=== PATIENT | female | born 1940 | race American Indian/Alaskan Native ===

== ENCOUNTER 2019-05-09 12:35 | Emergency (ER) | payer MEDICARE ==
[~2019-05-09] VITALS: Ht 152.4 cm; Wt 81.7 kg
[2019-05-09 13:17] LABS: BASOPHILS ABSOLUTE AUTO 0.05 K/mm3 (0.00-0.23); BASOPHILS PERCENT AUTO 1 % (0-2); EOSINOPHILS ABSOLUTE AUTO 0.18 K/mm3 (0.00-0.68); EOSINOPHILS PERCENT AUTO 2 % (0-6); Hematocrit 43.8 % (33.0-51.0); Hemoglobin 14.5 g/dL (11.5-16.0); IMMATURE GRAN ABSOLUTE AUTO 0.02 K/mm3 (0.00-0.10); IMMATURE GRAN PERCENT AUTO 0 % (0-1); LYMPHOCYTES ABSOLUTE AUTO 4.83 K/mm3 (0.84-5.20); LYMPHOCYTES PERCENT AUTO 50 % (21-46); MONOCYTES ABSOLUTE AUTO 0.77 K/mm3 (0.16-1.47); MONOCYTES PERCENT AUTO 8 % (4-13); Mean Corpuscular HGB Conc 33.1 g/dL (31.5-36.5); Mean Corpuscular Volume 88 fL (80-100); Mean Platelet Volume 11.9 fL (9.1-12.4); NEUTROPHILS ABSOLUTE AUTO 3.73 K/mm3 (1.96-9.15); NEUTROPHILS PERCENT AUTO 39 % (41-73); Platelet Count 272 K/mm3 (150-400); RDW Coefficient Variation 13.5 % (11.7-14.2); RDW Standard Deviation 43.6 fL (35.1-46.3); White Blood Cell Count 9.58 K/mm3 (4.00-11.30)
[2019-05-09 13:33] LABS: Alanine Aminotransfer (ALT/SGP 68 U/L (12-78); Albumin, Blood 3.9 g/dL (3.4-5.0); Alk Phos 61 U/L (50-136); Anion Gap 7 mmol/L (6-16); Aspartate Aminotrans (AST/SGOT 94 U/L (12-37); Bilirubin, Total 0.5 mg/dL (0.1-1.0); Blood Urea Nitrogen 19 mg/dL (8-24); Bun/Creatinine Ratio 25.7 (12.0-20.0); CO2, Blood 28 mmol/L (21-32); Calcium, Blood 8.8 mg/dL (8.5-10.1); Chloride, Blood 104 mmol/L (98-108); Creatinine, Blood 0.74 mg/dL (0.40-1.00); Glomerular Filtration Rate >60 (60-); Glucose, Blood 90 mg/dL (70-99); Potassium, Blood 3.8 mmol/L (3.5-5.5); Sodium, Blood 139 mmol/L (136-145); Total Protein, Blood 7.9 g/dL (6.4-8.2)
[2019-05-09] MEDS ORDERED: IBUP600 PO (14:29)
[2019-05-09] MEDS ORDERED: Spironolactone1 EACH PO (14:42)
[2019-05-09] MEDS ORDERED: Bystolic20 MG PO (14:43)
[2019-05-09] MEDS ORDERED: COLCHICINE0.6 MG PO (14:43)
[2019-05-09] MEDS ORDERED: TRAZ50 PO (14:43)
== END 2019-05-09 14:51 | disposition home or self-care (01) ==
LOC: ER 12:35
PROVIDERS: Physician Assistant
DX: R51 Headache (principal); I10 Essential (primary) hypertension; Z79.899 Other long term (current) drug therapy
CPT/HCPCS: 36415; 70450; 80053; 85025; 96374; 99284-25; J1885

== ENCOUNTER 2023-06-07 16:35 | Observation (INO) | payer MEDICARE ==
[~2023-06-07] VITALS: Ht 152.4 cm; Wt 68.0 kg
[~2023-06-07 16:35] MED LIST changes: -ALLOPURINOL100 M1 PO; -GLIP5 PO; -METFORMIN HCL500 M3 PO; -PHOSPHO-TRIN K500 MG PO
[2023-06-07] MEDS ORDERED: GLIP5 PO (21:22)
[2023-06-07] MEDS ORDERED: METFORMIN HCL500 M3 PO (21:22)
[2023-06-07] MEDS ORDERED: ALLOPURINOL100 M1 PO (21:22)
[2023-06-08 03:17] LABS: Magnesium, Blood 2.1 mg/dL (1.6-2.4); Potassium, Blood 3.4 mmol/L (3.5-5.5)
[2023-06-08 04:37] LABS: BASOPHILS ABSOLUTE AUTO 0.07 K/mm3 (0.00-0.23); BASOPHILS PERCENT AUTO 1 % (0-2); EOSINOPHILS PERCENT AUTO 1 % (0-6); Hematocrit 36.6 % (33.0-51.0); Hemoglobin 12.8 g/dL (11.5-16.0); IMMATURE GRAN ABSOLUTE AUTO 0.01 K/mm3 (0.00-0.10); IMMATURE GRAN PERCENT AUTO 0 % (0-1); LYMPHOCYTES ABSOLUTE AUTO 3.75 K/mm3 (0.84-5.20); LYMPHOCYTES PERCENT AUTO 38 % (21-46); MONOCYTES ABSOLUTE AUTO 0.96 K/mm3 (0.16-1.47); MONOCYTES PERCENT AUTO 10 % (4-13); Mean Corpuscular HGB 28.6 pg (26.0-34.0); Mean Corpuscular Volume 82 fL (80-100); Mean Platelet Volume 11.7 fL (9.1-12.4); NEUTROPHILS ABSOLUTE AUTO 5.05 K/mm3 (1.96-9.15); NEUTROPHILS PERCENT AUTO 51 % (41-73); Platelet Count 310 K/mm3 (150-400); RDW Coefficient Variation 13.3 % (11.7-14.2); RDW Standard Deviation 39.3 fL (35.1-46.3); Red Blood Cell Count 4.47 M/mm3 (3.80-5.20); White Blood Cell Count 9.94 K/mm3 (4.00-11.30)
[2023-06-08 05:45] LABS: Albumin, Blood 3.1 g/dL (3.4-5.0); Albumin/Globulin Ratio 0.8 (0.8-1.8); Bilirubin, Total 0.8 mg/dL (0.1-1.0); Bun/Creatinine Ratio 24.8 (12.0-20.0); Calcium, Blood 9.1 mg/dL (8.5-10.1); Creatinine, Blood 0.73 mg/dL (0.40-1.00); Potassium, Blood 3.6 mmol/L (3.5-5.5); Total Protein, Blood 7.1 g/dL (6.4-8.2)
[2023-06-08] MEDS ORDERED: PHOSPHO-TRIN K500 MG PO (11:44)
[2023-06-08 12:31] VITALS: BP 125/75
== END 2023-06-08 15:00 | disposition home or self-care (01) ==
LOC: ER 16:35 → ERHOLD 16:36
PROVIDERS: Family Medicine; Student in an Organized Health Care Education/Training Program; ADMIT Internal Medicine
DX: E87.6 Hypokalemia (principal); N17.9 Acute kidney failure, unspecified; M10.9 Gout, unspecified; I44.7 Left bundle-branch block, unspecified; K21.9 Gastro-esophageal reflux disease without esophagitis; E11.9 Type 2 diabetes mellitus without complications; Z79.84 Long term (current) use of oral hypoglycemic drugs; Z79.899 Other long term (current) drug therapy; R53.81 Other malaise; R53.83 Other fatigue
CPT/HCPCS: 71046; 80048; 80053; 83735; 84100; 84132; 85025; 93005; 93010; 96361; 96365; 96366; 96368; 99284-25; A9270; J1644; J3475; J3480; J7030

== ENCOUNTER → 2023-06-07 | Outpatient (CLI) | payer MEDICARE ==
[~2023-06-07] MED LIST: ALLOPURINOL100 M1 PO; Bystolic20 MG PO; COLCHICINE0.6 MG PO; GLIP5 PO; IBUP600 PO; METFORMIN HCL500 M3 PO; PHOSPHO-TRIN K500 MG PO; SPIRONOLACTONE1 EACH PO; TRAZ50 PO
[2023-06-07 15:46] LABS: BASOPHILS ABSOLUTE AUTO 0.07 K/mm3 (0.00-0.23); BASOPHILS PERCENT AUTO 1 % (0-2); EOSINOPHILS PERCENT AUTO 1 % (0-6); Hematocrit 42.3 % (33.0-51.0); Hemoglobin 14.7 g/dL (11.5-16.0); IMMATURE GRAN ABSOLUTE AUTO 0.02 K/mm3 (0.00-0.10); IMMATURE GRAN PERCENT AUTO 0 % (0-1); LYMPHOCYTES ABSOLUTE AUTO 4.23 K/mm3 (0.84-5.20); LYMPHOCYTES PERCENT AUTO 42 % (21-46); MONOCYTES ABSOLUTE AUTO 0.96 K/mm3 (0.16-1.47); MONOCYTES PERCENT AUTO 10 % (4-13); Mean Corpuscular HGB 28.8 pg (26.0-34.0); Mean Corpuscular HGB Conc 34.8 g/dL (31.5-36.5); Mean Corpuscular Volume 83 fL (80-100); Mean Platelet Volume 11.5 fL (9.1-12.4); NEUTROPHILS ABSOLUTE AUTO 4.61 K/mm3 (1.96-9.15); NEUTROPHILS PERCENT AUTO 46 % (41-73); Platelet Count 374 K/mm3 (150-400); RDW Coefficient Variation 13.4 % (11.7-14.2); RDW Standard Deviation 39.7 fL (35.1-46.3); Red Blood Cell Count 5.11 M/mm3 (3.80-5.20); White Blood Cell Count 9.99 K/mm3 (4.00-11.30)
[2023-06-07 15:50] LABS: Calcium, Blood 9.1 mg/dL (8.5-10.1); Creatinine, Blood 1.15 mg/dL (0.40-1.00); Potassium, Blood 2.6 mmol/L (3.5-5.5)
== END | disposition home or self-care (01) ==
LOC: LAB 15:39 → LAB SHORT 15:39
PROVIDERS: Physician Assistant Surgical
DX: R53.81 Other malaise (principal); R53.83 Other fatigue
CPT/HCPCS: 80048; 85025

== ENCOUNTER 2024-08-01 17:20 | Inpatient (IN) | payer OTHER, MEDICARE ==
[~2024-08-01] VITALS: Ht 152.4 cm; Wt 70.5 kg
[~2024-08-01 17:20] MED LIST changes: +ALLOPURINOL100 M1 PO; +GLIP5 PO; +METFORMIN HCL500 M3 PO; +PHOSPHO-TRIN K500 MG PO
[2024-08-01] MEDS ORDERED: Ondansetron HCl 2 MG / ML 2ML Vial ONE (17:27)
[2024-08-01] MEDS ORDERED: Ondansetron HCl 2 MG / ML 2ML Vial IV ONE ×2 (17:35→20:15)
[2024-08-01] MEDS ORDERED: SPIRONOLACTONE25 MG PO (17:50)
[2024-08-01] MEDS ORDERED: OZEMPIC0.25 MG/02 SQ (17:50)
[2024-08-01] MEDS ORDERED: OMEP20ER PO (17:51)
[2024-08-01 18:18] LABS: BASOPHILS ABSOLUTE AUTO 0.04 K/mm3 (0.00-0.23); BASOPHILS PERCENT AUTO 0 % (0-2); EOSINOPHILS ABSOLUTE AUTO 0.27 K/mm3 (0.00-0.68); EOSINOPHILS PERCENT AUTO 3 % (0-6); Hematocrit 34.7 % (33.0-51.0); Hemoglobin 11.8 g/dL (11.5-16.0); IMMATURE GRAN ABSOLUTE AUTO 0.07 K/mm3 (0.00-0.10); IMMATURE GRAN PERCENT AUTO 1 % (0-1); LYMPHOCYTES ABSOLUTE AUTO 4.85 K/mm3 (0.84-5.20); LYMPHOCYTES PERCENT AUTO 47 % (21-46); MONOCYTES ABSOLUTE AUTO 0.85 K/mm3 (0.16-1.47); MONOCYTES PERCENT AUTO 8 % (4-13); Mean Corpuscular HGB 28.8 pg (26.0-34.0); Mean Corpuscular Volume 85 fL (80-100); Mean Platelet Volume 11.3 fL (9.1-12.4); NEUTROPHILS PERCENT AUTO 41 % (41-73); Platelet Count 256 K/mm3 (150-400); RDW Coefficient Variation 13.2 % (11.7-14.2); RDW Standard Deviation 40.7 fL (35.1-46.3); White Blood Cell Count 10.28 K/mm3 (4.00-11.30)
[2024-08-01 18:27] LABS: Albumin, Blood 3.3 g/dL (3.4-5.0); Albumin/Globulin Ratio 0.8 (0.8-1.8); Bilirubin, Total 0.3 mg/dL (0.1-1.0); Bun/Creatinine Ratio 19.7 (12.0-20.0); Calcium, Blood 8.9 mg/dL (8.5-10.1); Creatinine, Blood 0.61 mg/dL (0.40-1.00); Globulin, Blood 3.9 g/dL (2.2-4.0); Potassium, Blood 3.2 mmol/L (3.5-5.5); Total Protein, Blood 7.2 g/dL (6.4-8.2)
[2024-08-01] MEDS ORDERED: HYDROmorphone HCl/Pf 1MG SYR IV ONE (18:55)
[2024-08-01 19:55] LABS: International Normalized Ratio 1.02; Prothrombin Time Results 10.9 Sec (9.7-11.5)
[2024-08-01] MEDS ORDERED: Methocarbamol 500 MG Tab PO ONE (20:15)
[2024-08-01] MEDS ORDERED: Lactated Ringer's 1,000 ML IV SCH (21:37)
[2024-08-01] MEDS ORDERED: Potassium Chloride 10 Meq Tablet SA PO ONE (21:44)
[2024-08-01] MEDS ORDERED: OxyCODONE 5 mg/Acetamin 325 mg TABLET PO PRN (21:45)
[2024-08-01] MEDS ORDERED: Acetaminophen 325 MG TABLET PO PRN (21:45)
[2024-08-01] MEDS ORDERED: FLU VACC TS2024-25(6MOS UP)/PF 45 MCG/0.5 ML SYRINGE IM SCH (21:45)
[2024-08-01] MEDS ORDERED: FentaNYL Citrate 50 MCG/ML 2 ML Injection IV PRN (21:50)
[2024-08-01] MEDS ORDERED: Ondansetron HCl 2 MG / ML 2ML Vial IV PRN (21:50)
[2024-08-01 21:59] LABS: Magnesium, Blood 1.6 mg/dL (1.6-2.4)
[2024-08-01] MEDS ORDERED: LORA.5 PO (22:21)
[2024-08-01 23:13] VITALS: BP 187/79
--- NOTE | 2024-08-02 00:39 | NUR ---
NEW ADMIT PT IS A/OX4. FULL CODE. NEW ADMIT FOR NEW LEFT HIP FX. PT HAD FALL AT HOME IN THE BATHROOM AND BROUGHT IN BY AMBULANCE. PT ARRIVED TO ROOM AT 2250. TRANSFERED WITH BED SHEET AND 4 PERSON ASSIST. PT IS VERY PAINFUL TO LEFT HIP AND NOT TOLERATING MOVEMENT. GAVE PT 25MCG OF FENTANYL AND ORAL PERCOCET. STARTED IV FLUIDS. PT GIVEN ORAL POTASSIUM ORDERED. PT HAD SMALL SNACK AND WATER--THEN NPO AT MIDNIGHT. NOTED MILD WEAKNESS TO LEFT ARM. PT STATES SHE HAS HAD A NEW ONSET OF N&T IN LEFT ARM/LEG ACCOMPANIED BY WEAKNESS. PT STATES SHE HAS NOT BEEN EVALUATED--SPEECH IS CLEAR. PT STATES SYMPTOMS IMPROVE WITH MOVEMENT AND MASSAGE. 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 HX OF MENERIE'S DISEASE--SUDDEN BOUTS OF DIZZINESS. PT LIVES IN A SINGLE STORY HOME WITH GRANDSON. PT USES A CANE FOR AMBULATION WHEN OUTSIDE THE HOME. IN THE HOME BUT PT USES FIXTURES TO ASSIST WITH AMBULATION. PT DENIES SAFETY CONCERNS AT HOME. PT STILL DRIVES BUT GRANDSON WILL PROVIDE TRANSPORTATION IF SHE IS UNABLE TO DRIVE HERSELF. GRANDSON'S NAME IS , ; REQUEST TO SPEAK WITH SURGEON PRIOR TO PT SURGERY. ADVISED WILL PASS ON REQUEST. PT DENIES SMOKING OR IGNITION SOURCES. EDUCATED PT ON ROOM AND CALL LIGHT. INSTRUCTED ON REASON FOR NPO STATUS AND PLAN/NEED TO MANAGE PAIN. CALL LIGHT ACCESSIBLE.
[2024-08-02 04:55] VITALS: BP 168/56
[2024-08-02 05:10] LABS: BASOPHILS ABSOLUTE AUTO 0.03 K/mm3 (0.00-0.23); BASOPHILS PERCENT AUTO 0 % (0-2); EOSINOPHILS ABSOLUTE AUTO 0.02 K/mm3 (0.00-0.68); EOSINOPHILS PERCENT AUTO 0 % (0-6); Hemoglobin 11.3 g/dL (11.5-16.0); IMMATURE GRAN ABSOLUTE AUTO 0.07 K/mm3 (0.00-0.10); IMMATURE GRAN PERCENT AUTO 1 % (0-1); LYMPHOCYTES ABSOLUTE AUTO 2.97 K/mm3 (0.84-5.20); LYMPHOCYTES PERCENT AUTO 22 % (21-46); MONOCYTES ABSOLUTE AUTO 0.99 K/mm3 (0.16-1.47); MONOCYTES PERCENT AUTO 7 % (4-13); Mean Corpuscular HGB 28.8 pg (26.0-34.0); Mean Corpuscular HGB Conc 34.2 g/dL (31.5-36.5); Mean Corpuscular Volume 84 fL (80-100); Mean Platelet Volume 11.3 fL (9.1-12.4); NEUTROPHILS ABSOLUTE AUTO 9.53 K/mm3 (1.96-9.15); NEUTROPHILS PERCENT AUTO 70 % (41-73); Platelet Count 225 K/mm3 (150-400); RDW Coefficient Variation 13.2 % (11.7-14.2); RDW Standard Deviation 40.2 fL (35.1-46.3); Red Blood Cell Count 3.93 M/mm3 (3.80-5.20); White Blood Cell Count 13.61 K/mm3 (4.00-11.30)
[2024-08-02 05:57] LABS: Albumin, Blood 3.2 g/dL (3.4-5.0); Albumin/Globulin Ratio 0.9 (0.8-1.8); Bilirubin, Total 0.6 mg/dL (0.1-1.0); Bun/Creatinine Ratio 19.6 (12.0-20.0); Calcium, Blood 8.7 mg/dL (8.5-10.1); Creatinine, Blood 0.61 mg/dL (0.40-1.00); Globulin, Blood 3.6 g/dL (2.2-4.0); Potassium, Blood 3.6 mmol/L (3.5-5.5); Total Protein, Blood 6.8 g/dL (6.4-8.2)
[2024-08-02 07:21] VITALS: BP 172/67
[2024-08-02] MEDS ORDERED: Insulin Human Lispro 100 Units/ML 3ML Syringe SC SCH (07:30)
[2024-08-02] MEDS ORDERED: BENADRYL25 MG PO (13:17)
--- NOTE | 2024-08-02 15:20 | NUR ---
CALLED MD REQUESTED TO RESTART PATIENT'S HOME MEDICATIONS AND ALSO REQUESTED TO START PATIENT ON BOWEL MEDS DUE TO PATIENT WITH FREQUENT NARCOTIC USE.
[2024-08-02 15:59] VITALS: BP 180/66
[2024-08-02] MEDS ORDERED: LORazepam 0.5 MG Tab PO PRN (16:35)
[2024-08-02] MEDS ORDERED: HydrALAZINE HCl 20 MG / ML 1ML Vial IV PRN (16:40)
[2024-08-02] MEDS ORDERED: Cyclobenzaprine HCl 10 MG Tab PO PRN (16:45)
[2024-08-02] MEDS ORDERED: SEMAGLUTIDE 0.25 MG/0.368 ML SC SCH (16:45)
[2024-08-02] MEDS ORDERED: Carvedilol 6.25 MG Tab PO SCH (17:00)
[2024-08-02] MEDS ORDERED: Polyethylene Glycol 3350 17 gm PO PRN (17:35)
[2024-08-02] MEDS ORDERED: Docusate Sodium/Senna 1 Tab PO PRN (17:35)
[2024-08-02 18:33] VITALS: BP 172/52
--- NOTE | 2024-08-02 18:43 | NUR ---
SHIFT SUMMARY PATIENT A/OX4, ABLE TO MAKE NEEDS KNOWN. [address] TRACTION IN PL[address] TO LEFT LOWER EXTREMITY PER ORDERS. PATIENT CONTINUES TO COMPLAIN OF PAIN TO LEFT HIP R/T FRACTURE, PRN FLEXERIL, FENTANYL AND PERCOCET ADMINISTERED PER OCT. PLAN TO HAVE SURGERY TOMORROW, NPO AT MIDNIGHT. IV FLUIDS RUNNING PER OCT. REPEAT CT ALAS AND XRAY BEING TAKEN CURRENTLY. FAMILY AT BEDSIDE THROUGHOUT MOST OF SHIFT. PATIENT WITH ELEVATED BLOOD PRESSURE THROUGHOUT SHIFT MD NOTIFIED AND PRN HYDRALAZINE IN PLACE NOW AND ADMINISTERED, NOT EFFECTIVE. SBP REMAINS ELEVATED. PATIENT'S HOME MEDICATIONS ORDERED. PATIENT ALSO COMPLAINING OF NAUSEA THIS EVENING AFTER DINNNER, PRN ZOFRANA ADMINISTERED PER OCT. NO OTHER CONCERNS AT THIS TIME.
[2024-08-02 20:10] VITALS: BP 153/60
[2024-08-02] MEDS ORDERED: DiphenhydrAMINE HCL 25 MG Cap PO SCH (21:00)
[2024-08-03 03:52] VITALS: BP 152/63
[2024-08-03] MEDS ORDERED: Omeprazole 20 MG CapCR PO SCH (06:00)
[2024-08-03 06:10] LABS: Bun/Creatinine Ratio 16.4 (12.0-20.0); Calcium, Blood 8.8 mg/dL (8.5-10.1); Creatinine, Blood 0.61 mg/dL (0.40-1.00); Potassium, Blood 3.8 mmol/L (3.5-5.5)
--- NOTE | 2024-08-03 06:10 | NUR ---
WHISKEY PROOF READER SUMMARY PT A/OX4. ABLE TO MAKE NEEDS KNOWN. PT RETURNED FROM IMAGING JUST AFTER START OF SHIFT. XFFERED TO BED WITH XFER SHEET AND 4 STAFF. INCREASED PAIN WITH MOVEMENT/ACTIVITY. BUCKS TRACTION READMIN PER ORDER UPON PT RETURN; 5LBS. MEDS TO MANAGE PAIN PER MAR. PT HAS NOT HAD A BOWEL MOVEMENT SINCE ADMIT; LAST BM WAS DAY OF FALL AT HOME. PT EXPRESSING FEAR OF MOVEMENT AND NEED TO USE BEDPAN. EDUCATED PT ON RISKS OF CONSTIPATION/SBO RELATED TO MEDICATIONS AND IMMOBILITY. PRN STOOL SOFTNERS GIVEN WITH 2100 MEDS. PT DECLINED MIRALAX. HS CBG 190; COVERAGE NOT ORDERED PER SLIDING SCALE. DISCUSSED WITH PT; PLAN TO RESUME [facility], HOME MED; HAS BEEN ORDERED AND ON PT OCT. PT HAS BEEN NPO SINCE MIDNIGHT FOR SURGERY PLANNED TODAY. TX PAIN WITH PRN PERCOCET, FENTANYL AND FLEXERIL. PT LETHARGIC AND NON SENSICAL AT TIMES; CALL TO HOPITALIST; NEW ORDER FOR CONT BIOX. PT MAINTAINING SAT GREATER THAN 90% ON RA. REGULAR INTERAVAL ROUNDING COMPLETE TO ASSESS AND MEET NEEDS. WCTM UNTIL REPORT GIVEN TO ONCOMING NURSE.
[2024-08-03 06:22] LABS: BASOPHILS ABSOLUTE AUTO 0.05 K/mm3 (0.00-0.23); BASOPHILS PERCENT AUTO 0 % (0-2); EOSINOPHILS ABSOLUTE AUTO 0.28 K/mm3 (0.00-0.68); EOSINOPHILS PERCENT AUTO 2 % (0-6); Hemoglobin 11.6 g/dL (11.5-16.0); IMMATURE GRAN ABSOLUTE AUTO 0.05 K/mm3 (0.00-0.10); IMMATURE GRAN PERCENT AUTO 0 % (0-1); LYMPHOCYTES ABSOLUTE AUTO 3.61 K/mm3 (0.84-5.20); LYMPHOCYTES PERCENT AUTO 29 % (21-46); MONOCYTES PERCENT AUTO 8 % (4-13); Mean Corpuscular HGB 28.9 pg (26.0-34.0); Mean Corpuscular HGB Conc 34.1 g/dL (31.5-36.5); Mean Corpuscular Volume 85 fL (80-100); NEUTROPHILS ABSOLUTE AUTO 7.42 K/mm3 (1.96-9.15); NEUTROPHILS PERCENT AUTO 60 % (41-73); RDW Coefficient Variation 13.5 % (11.7-14.2); RDW Standard Deviation 41.7 fL (35.1-46.3); Red Blood Cell Count 4.01 M/mm3 (3.80-5.20); White Blood Cell Count 12.41 K/mm3 (4.00-11.30)
[2024-08-03 06:29] LABS: Mean Platelet Volume 11.7 fL (9.1-12.4)
[2024-08-03 06:58] LABS: Platelet Count 200 K/mm3 (150-400)
[2024-08-03 07:15] VITALS: BP 138/53
[2024-08-03] MEDS ORDERED: Spironolactone 12.5 MG TAB PO SCH (09:00)
[2024-08-03] MEDS ORDERED: Allopurinol 100 MG Tab PO SCH (09:00)
[2024-08-03] MEDS ORDERED: SEMAGLUTIDE 0.25 MG/0.368 ML SC SCH ×2 (09:00→21:00)
[2024-08-03 15:50] VITALS: BP 178/65
--- NOTE | 2024-08-03 15:50 | NUR ---
ARRIVAL TO UNIT PT ARRIVED TO UNIT ON BED FROM MEDICAL FLOOR. PT ON 2L NASAL CANULA, REPORTED TO DESAT WITH PAIN MEDICATIONS. CURRENTLY 94%. DENIES SOB. L LEG PAINFUL, 5LB BUCKS TRACTION IN PLACE. LEG EXTERNALLY ROTATED. PT AA0X4, USING CALL LIGHT APPROPRIATLY. PUREWICK IN PLACE. PT TOLERATING MOUTH SWABS. ELENA NEEDS AT THIS TIME. EAGER FOR SURGERY TOMORROW.
--- NOTE | 2024-08-03 15:56 | NUR ---
TRANSFER NOTE PATIENT TRANSFERRED TO ROOM 216 THIS AFTERNOON. REPORT GIVEN TO MARY. FAMILY AWARE OF TRANSFER. MD DISCONTINUED INSULIN ORDER AND ACHS CBG MONITORING THIS SHIFT. PATIENT'S HOME OZEMPIC SENT TO ROOM 216 WITH PATIENT WELL ALL BELONGINGS. PATIENT DOES NOT TOLERATE Q2 HOUR REPOSITIONING WELL D/T L HIP PAIN. PRN FENTANYL, PERCOCET, AND FLEXERIL ADMINISTERED THROUGHOUT SHIFT PER OCT. PATIENT LEFT LOWER EXTREMITY REMAINS IN 5LBS BOWDEN'S TRACTION. HEATING PAD PROVIDED TO PATIENT FOR PAIN. PATIENT PLACED ON 2 LPM SUPPLEMENTAL OXYGEN VIA NASAL CANNULA THIS AFTERNOON AFTER ADMINISTRATION OF FENTANYL. SPO2 DROPPED TO 86%. NO OTHER CONCERNS AT THIS TIME.
[2024-08-03 17:00] VITALS: BP 167/68
--- NOTE | 2024-08-03 18:15 | NUR ---
no acute changes since transfer to unit pt remains painful but improved with repositioning. ivf infusing, tolerating diet. plan is for npo at midnight and surgery tomorrow.
[2024-08-03 19:41] VITALS: BP 149/67
[2024-08-04] VITALS (28 sets, daily range): BP systolic 103–162; BP diastolic 43–75
[2024-08-04 04:27] LABS: BASOPHILS ABSOLUTE AUTO 0.04 K/mm3 (0.00-0.23); BASOPHILS PERCENT AUTO 0 % (0-2); EOSINOPHILS ABSOLUTE AUTO 0.31 K/mm3 (0.00-0.68); EOSINOPHILS PERCENT AUTO 3 % (0-6); Hematocrit 33.2 % (33.0-51.0); Hemoglobin 11.3 g/dL (11.5-16.0); IMMATURE GRAN ABSOLUTE AUTO 0.02 K/mm3 (0.00-0.10); IMMATURE GRAN PERCENT AUTO 0 % (0-1); LYMPHOCYTES ABSOLUTE AUTO 2.29 K/mm3 (0.84-5.20); LYMPHOCYTES PERCENT AUTO 22 % (21-46); MONOCYTES ABSOLUTE AUTO 1.04 K/mm3 (0.16-1.47); MONOCYTES PERCENT AUTO 10 % (4-13); Mean Corpuscular HGB 29.3 pg (26.0-34.0); Mean Corpuscular Volume 86 fL (80-100); Mean Platelet Volume 10.8 fL (9.1-12.4); NEUTROPHILS ABSOLUTE AUTO 6.59 K/mm3 (1.96-9.15); NEUTROPHILS PERCENT AUTO 64 % (41-73); Platelet Count 186 K/mm3 (150-400); RDW Coefficient Variation 13.5 % (11.7-14.2); RDW Standard Deviation 42.4 fL (35.1-46.3); Red Blood Cell Count 3.86 M/mm3 (3.80-5.20); White Blood Cell Count 10.29 K/mm3 (4.00-11.30)
[2024-08-04 04:46] LABS: Bun/Creatinine Ratio 15.9 (12.0-20.0); Calcium, Blood 8.6 mg/dL (8.5-10.1); Creatinine, Blood 0.69 mg/dL (0.40-1.00); Potassium, Blood 3.6 mmol/L (3.5-5.5)
--- NOTE | 2024-08-04 06:43 | NUR ---
SHIFT SUMMARY NO ACUTE CHANGES T/O SHIFT. PT APPEARS TO HAVE RESTED WELL T/O SHIFT. BUCKS TRACTION IN PLACE. NPO FOR SURGERY TODAY, IVF INFUSING PER ORDERS. CHG BATH COMPLETE BY MOLDER VACUUM. SPO2 ABOVE 95% ON 2L NC. PAIN MANAGED PER EMAR. PT CURRENTLY RESTING IN BED WITH CALL LIGHT IN REACH. WILL REPORT TO ONCOMING DAY RN.
[2024-08-04] MEDS ORDERED: Tranexamic Acid 1,000 MG in NS 100 ML IV SCH (07:20)
[2024-08-04] MEDS ORDERED: Ropivacaine 0.5% HCl/Pf 123.125 MG,EPINEPHrine HCL 0.25 MG,Ketorolac Tromethamine 15 MG... INFIL SCH (07:20)
[2024-08-04] MEDS ORDERED: CeFAZolin Sodium 2,000 MG in NS 100 ML IV SCH ×2 (07:20→21:00)
[2024-08-04] MEDS ORDERED: Vancomycin HCL 1,000 MG in NS 250 ML IV SCH (07:25)
[2024-08-04] MEDS ORDERED: CeFAZolin Sodium 2,000 MG VIAL ONE (11:34)
--- NOTE | 2024-08-04 12:14 | NUR ---
History, Chart, Medications and Allergies reviewed before start of procedure. Pre-Op teaching done. Pt verbalizes understanding. Patient confirms NPO status and agrees with scheduled surgery. PT BELONGINGS LEFT IN SURG FLOOR RM.
--- NOTE | 2024-08-04 12:20 | NUR ---
PT TAKEN TO DAY SURGERY AT 1159.
[2024-08-04] MEDS ORDERED: FentaNYL Citrate 50 MCG/ML 2 ML Injection ONE ×2 (12:50→13:51)
[2024-08-04] MEDS ORDERED: Albumin (Human) 12.5gm/250ml 500 ML IV ONE (12:50)
[2024-08-04] MEDS ORDERED: Etomidate 2MG / ML 10ML Vial ONE (12:50)
[2024-08-04] MEDS ORDERED: Bisacodyl 10 MG Supp PR PRN (13:05)
[2024-08-04] MEDS ORDERED: DiphenhydrAMINE HCL 25 MG Cap PO PRN (13:05)
[2024-08-04] MEDS ORDERED: FLU VACC TS2024-25(6MOS UP)/PF 45 MCG/0.5 ML SYRINGE IM ONE (13:05)
[2024-08-04] MEDS ORDERED: Promethazine HCl 25 MG Tab PO PRN (13:05)
[2024-08-04] MEDS ORDERED: Prochlorperazine Edisylate 10 mg Vial IV PRN (13:05)
[2024-08-04] MEDS ORDERED: HYDROmorphone HCl/Pf 1MG SYR IV PRN (13:10)
[2024-08-04] MEDS ORDERED: Ondansetron HCl 2 MG / ML 2ML Vial IV PRN (13:10)
[2024-08-04] MEDS ORDERED: Metoclopramide HCl 5MG / ML 2ML Vial IV PRN (13:10)
[2024-08-04] MEDS ORDERED: OxyCODONE HCL 5 MG TAB PO PRN (13:10)
[2024-08-04] MEDS ORDERED: Magnesium Hydroxide Conc 10 ML UDC PO PRN (13:15)
[2024-08-04] MEDS ORDERED: NS 1,000 ML IV SCH (13:15)
--- NOTE | 2024-08-04 13:45 | NUR ---
08/04/24 Muna Hallman PRIOR TO ARRIVING IN OR, PATIENT RECEIVED VANCO 1GM IV IN THE PREOP SETTING.
[2024-08-04] MEDS ORDERED: Phenylephrine HCl 100 MCG/ML-NS 10MLSYR (1MG/10ML) ONE (14:09)
[2024-08-04] MEDS ORDERED: Lidocaine HCl 2% 20 ML MDV ONE (14:10)
[2024-08-04] MEDS ORDERED: Dexamethasone Sod Phos 10 MG/ML 1ML VIAL ONE (14:10)
[2024-08-04] MEDS ORDERED: Ondansetron HCl 2 MG / ML 2ML Vial ONE (14:10)
[2024-08-04] MEDS ORDERED: Phenylephrine HCl 10mg/ml 1 ml Vial ONE (14:16)
[2024-08-04] MEDS ORDERED: Sugammadex Sodium 200 MG/2ML SDV (100 MG/ML) ONE (14:47)
[2024-08-04] MEDS ORDERED: Naloxone HCl 0.4MG / ML 1ML Vial ONE (15:46)
[2024-08-04] MEDS ORDERED: Acetaminophen 500 MG Tab PO SCH (16:00)
[2024-08-04] MEDS ORDERED: Ketorolac Tromethamine 15mg Vial IV SCH (18:00)
--- NOTE | 2024-08-04 18:00 | NUR ---
PT ARRIVED TO THE ROOM FROM PACU AT APPROXIMATELY 1715. UPON ARRIVAL PT WAS DROWSY, SHE WOKE WHEN SPOKEN TO/WITH PHYSICAL STIMULI. PT ORIENTED TO SELF. PT ABLE TO MOVE ALL EXTREMITIES WEAKLY. L HIP DRESSING C/D/I. NOTED MOIST BREATH SOUNDS UPON ARRIVAL, JOSE FRANCISCO RT NOTIFIED AND SUCTIONED PT, SOME BLOODY DRAINAGE WAS OBTAINED, BREATH SOUNDS IMPROVED. DR. BYERS NOTIFIED OF FINDINGS WITH SUCTIONGING, CHEST XRAY ORDERED. PT ALSO REMAINED SOMNOLENT, VBG ORDERED. DR. BYERS STATED HE WOULD ROUND ON PT IN APPROXIMATELY 15-20 MINUTES.
[2024-08-04 18:49] LABS: Base Excess Venous -0.4 mmol/L; Bicarbonate Venous 24.2 mmol/L (24.0-30.0); PCO2 Venous 36.8 mmHg (38-42); pH Blood Venous 7.42 (7.34-7.37)
--- NOTE | 2024-08-04 19:30 | NUR ---
SHIFT SUMMARY PT IS POD#0 FROM L TATI HIP. PT HAS BEEN SOMNOLENT SINCE ARRIVAL FROM RECOVERY ROOM. DR. BYERS NOTIFIED OF LAB RESULTS, CHEST XRAY RESULTS AND HE ROUNDED ON PT. PT WAKES TO VERBAL STIMULI BUT IS STILL DROWSY. PT NOW ON 5L O2 VIA NC. TELE ORDERED. BEDSIDE REPORT GIVEN TO KD WATSON. CONTINUOUS OX IN PLACE. MESSAGE LEFT WITH PT'S GRANDSON RAE TO CALL REGARDING UPDATE ABOUT HIS GRANDMOTHER.
--- NOTE | 2024-08-04 19:47 | NUR ---
DR. BYERS ROUNDING PROVIDER ROUNDING AT THIS TIME DUE TO RN REQUEST. NEW ORDERS OBTAINED TO HOLD TORADOL, IVF, AND PO MEDS UNTIL REASSESSED IN THE MORNING. BREATHING TREATMENTS AND BIPAP PRN ALSO OBTAINED. PLAN FOR H/H IN MORNING. WILL IMPLEMENT ORDERED. CHARGE NOTIFIED.
[2024-08-04] MEDS ORDERED: Ketorolac Tromethamine 15mg Vial IV PRN (19:51)
[2024-08-04] MEDS ORDERED: Docusate Sodium 100 MG Cap PO SCH (21:00)
--- NOTE | 2024-08-04 23:24 | NUR ---
PROVIDER UPDATE PER FINISHED STOCK INSPECTOR, PT EXPERIENCING ST ELEVATION. HOSPITALIST NOTIFIED. PT ASYMPTOMATIC, VSS. EKG COMPLETE- NSR WITH LEFT BUNDLE BRANCH BLOCK AT 85 BPM. NO NEW ORDERS AT THIS TIME.
[2024-08-05] MEDS ORDERED: Vancomycin HCL 1,000 MG in NS 250 ML IV SCH
[2024-08-05 04:18] VITALS: BP 116/47
[2024-08-05 04:42] LABS: BASOPHILS ABSOLUTE AUTO 0.01 K/mm3 (0.00-0.23); BASOPHILS PERCENT AUTO 0 % (0-2); EOSINOPHILS PERCENT AUTO 0 % (0-6); Hematocrit 27.3 % (33.0-51.0); Hemoglobin 9.2 g/dL (11.5-16.0); IMMATURE GRAN ABSOLUTE AUTO 0.03 K/mm3 (0.00-0.10); IMMATURE GRAN PERCENT AUTO 0 % (0-1); LYMPHOCYTES PERCENT AUTO 5 % (21-46); MONOCYTES ABSOLUTE AUTO 0.36 K/mm3 (0.16-1.47); MONOCYTES PERCENT AUTO 5 % (4-13); Mean Corpuscular HGB Conc 33.7 g/dL (31.5-36.5); Mean Corpuscular Volume 86 fL (80-100); Mean Platelet Volume 11.4 fL (9.1-12.4); NEUTROPHILS ABSOLUTE AUTO 7.15 K/mm3 (1.96-9.15); NEUTROPHILS PERCENT AUTO 90 % (41-73); Platelet Count 165 K/mm3 (150-400); RDW Coefficient Variation 13.6 % (11.7-14.2); RDW Standard Deviation 42.5 fL (35.1-46.3); Red Blood Cell Count 3.17 M/mm3 (3.80-5.20); White Blood Cell Count 7.95 K/mm3 (4.00-11.30)
[2024-08-05 05:05] LABS: Bun/Creatinine Ratio 24.1 (12.0-20.0); Calcium, Blood 8.3 mg/dL (8.5-10.1); Creatinine, Blood 0.7 mg/dL (0.40-1.00); Magnesium, Blood 1.7 mg/dL (1.6-2.4); Potassium, Blood 3.5 mmol/L (3.5-5.5)
[2024-08-05 07:05] VITALS: BP 145/59
--- NOTE | 2024-08-05 07:34 | NUR ---
SHIFT SUMMARY POD 1 LEFT TATI HIP. DRESSING TO LEFT HIP CDI. ICE THERAPY APPLIED TOLERATED. SPO2 ABOVE 95% ON 2L NC, REFUSED BIPAP/CPAP. POOR PO INTAKE, TOLERATING SMALL AMOUNTS OF CL. DENIES N/V. PAIN MANAGED PER EMAR AND REPOSITIONING. BAKER TO GRAVITY DRAIN. IVF HELD PER ORDERS. Q2 TURNS. ABX INFUSED. PT DROWSY THIS MORNING WITH FAMILY AT BEDSIDE. HAS CALL LIGHT IN REACH. ABLE TO MAKE NEEDS KNOWN. REPORT GIVEN TO DAY RN.
[2024-08-05] MEDS ORDERED: Enoxaparin 40 MG/0.4 ML SYR SC SCH (09:00)
[2024-08-05] MEDS ORDERED: Trimethoprim/Sulfamethoxazole DS Tab PO SCH (09:00)
[2024-08-05 14:12] VITALS: BP 140/42
--- NOTE | 2024-08-05 15:21 | NUR ---
SHIFT SUMMARY HAS DONE WELL THIS SHIFT. WORKED w/ PT & OT. PAIN CONTROLLED w/ TYLENOL. SAMUEL IYER'd THIS AFTERNOON SINCE MOBILIZING WELL. PLAN TO GO TO SNF TOMORROW.
[2024-08-05 19:21] VITALS: BP 144/48
--- NOTE | 2024-08-05 19:30 | NUR ---
SUMMARY PT A&OX4, VSS/2LNC/BIOX ON, PAIN MANAGED, ROWAN PO, AMB 1PP MOD W/FWW & GB, UP TO CHAIR, AMB TO BRP, VOIDING, GRANDSONS BEDSIDE. REPORT TO NOEL WATSON.
--- NOTE | 2024-08-06 04:14 | NUR ---
SHIFT SUMMARY POD1 L HIP FX. AQUACEL C/D/I. POSTERIOR HIP PRECAUTIONS. 1 ASSIST GB, FWW TO BSC/CHAIR. PAIN MANAGED WELL. VSS. CALL LIGHT IN REACH.
[2024-08-06 05:01] VITALS: BP 143/57
[2024-08-06 05:20] LABS: BASOPHILS ABSOLUTE AUTO 0.02 K/mm3 (0.00-0.23); BASOPHILS PERCENT AUTO 0 % (0-2); EOSINOPHILS ABSOLUTE AUTO 0.34 K/mm3 (0.00-0.68); EOSINOPHILS PERCENT AUTO 4 % (0-6); Hematocrit 25.6 % (33.0-51.0); Hemoglobin 8.6 g/dL (11.5-16.0); IMMATURE GRAN ABSOLUTE AUTO 0.02 K/mm3 (0.00-0.10); IMMATURE GRAN PERCENT AUTO 0 % (0-1); LYMPHOCYTES ABSOLUTE AUTO 2.61 K/mm3 (0.84-5.20); LYMPHOCYTES PERCENT AUTO 30 % (21-46); MONOCYTES ABSOLUTE AUTO 0.78 K/mm3 (0.16-1.47); MONOCYTES PERCENT AUTO 9 % (4-13); Mean Corpuscular HGB 29.4 pg (26.0-34.0); Mean Corpuscular HGB Conc 33.6 g/dL (31.5-36.5); Mean Corpuscular Volume 87 fL (80-100); Mean Platelet Volume 11.2 fL (9.1-12.4); NEUTROPHILS ABSOLUTE AUTO 4.87 K/mm3 (1.96-9.15); NEUTROPHILS PERCENT AUTO 57 % (41-73); Platelet Count 172 K/mm3 (150-400); RDW Standard Deviation 44.8 fL (35.1-46.3); Red Blood Cell Count 2.93 M/mm3 (3.80-5.20); White Blood Cell Count 8.64 K/mm3 (4.00-11.30)
[2024-08-06 06:03] LABS: Bun/Creatinine Ratio 32.2 (12.0-20.0); Calcium, Blood 8.3 mg/dL (8.5-10.1); Creatinine, Blood 0.75 mg/dL (0.40-1.00); Potassium, Blood 3.2 mmol/L (3.5-5.5)
[2024-08-06 07:41] VITALS: BP 142/54
[2024-08-06 11:44] LABS: SARS-Cov-2 (COVID-19) PCR, MMC NEGATIVE (NEGATIVE)
--- NOTE | 2024-08-06 13:05 | NUR ---
DISCHARGE PT DISCHARGED TO SNF VIA WHEEL CHAIR TRANSPORT. EDUCATION PROVIDED. ALL BELONGINGS SENT WITH PT.
== END 2024-08-06 13:00 | DRG 522 ==
LOC: ER 17:20 → MEDS 21:41 → SURS 21:41 → MEDS 22:59 → SURS 08-03 15:49
PROVIDERS: Family Medicine; Internal Medicine; Orthopaedic Surgery; Student in an Organized Health Care Education/Training Program; ADMIT Student in an Organized Health Care Education/Training Program
PROC: 0SRS0J9 Replacement of Left Hip Joint, Femoral Surface with Synthetic Substitute, Cemented, Open Approach (ICD-10-PCS; principal; 2024-08-04 12:30)
DX: S72.012A Unspecified intracapsular fracture of left femur, initial encounter for closed fracture (principal); E78.00 Pure hypercholesterolemia, unspecified; Z88.8 Allergy status to other drugs, medicaments and biological substances; E87.6 Hypokalemia; H81.09 Meniere's disease, unspecified ear; N18.30 Chronic kidney disease, stage 3 unspecified; I12.9 Hypertensive chronic kidney disease with stage 1 through stage 4 chronic kidney disease, or unspecified chronic kidney disease; E11.22 Type 2 diabetes mellitus with diabetic chronic kidney disease; M10.9 Gout, unspecified; W01.0XXA Fall on same level from slipping, tripping and stumbling without subsequent striking against object, initial encounter; Z79.899 Other long term (current) drug therapy; Y92.002 Bathroom of unspecified non-institutional (private) residence as the place of occurrence of the external cause
CPT/HCPCS: 36415; 71045; 72170; 72192; 73502; 73552; 80048; 80053; 82803; 82947; 83735; 85025; 85610; 85730; 93005; 93010; 94660; 94762; 96374; 96375; 96376; 97110; 97162; 97165; 97530; 97535; 99285-25; A9270; C1713; C1776; J0171; J0360; J0690; J0735; J1100; J1171; J1650; J1885; J2310; J2371; J2405; J2795; J3010; J3370; J7050; J7120; P9045; U0002

== ENCOUNTER 2025-06-13 15:08 | Observation (INO) | payer MEDICARE | END 2025-06-14 17:05 | disposition home health service (06) | LOC: ER 15:08 → MEDS 15:09 | PROVIDERS: ADMIT Internal Medicine | DX: G45.9 Transient cerebral ischemic attack, unspecified (principal); I66.01 Occlusion and stenosis of right middle cerebral artery; I25.10 Atherosclerotic heart disease of native coronary artery without angina pectoris; K21.9 Gastro-esophageal reflux disease without esophagitis; E78.00 Pure hypercholesterolemia, unspecified; E11.9 Type 2 diabetes mellitus without complications; Z79.899 Other long term (current) drug therapy ==